=== PATIENT | male | born 1940 | race Caucasian/White ===

== ENCOUNTER 2020-09-01 17:19 | Inpatient (IN) | payer OTHER, MEDICAID ==
[~2020-09-01] VITALS: Ht 185.4 cm; Wt 84.4 kg
[2020-09-01 18:18] LABS: HEMATOCRIT. 29.9 % (42.0-52.0); HEMOGLOBIN. 10.4 g/dL (14.0-18.0); MEAN CORPUSCULAR HEMOGLOBIN 34.6 pg (28.0-32.0); MEAN CORPUSCULAR VOLUME 99.7 fL (80.0-94.0); MEAN PLATELET VOLUME 8.8 fl (7.4-10.4); PLATELET 205 x1000/uL (130-400); RED CELL DISTRIBUTION WIDTH 13.7 % (11.6-14.6)
[2020-09-01 18:25] LABS: CHLORIDE 105 mEq/L (98-107)
[2020-09-01] MEDS ORDERED: ACETAMINOPHEN 325MG TABLET PO STA (18:31)
[2020-09-01 18:35] LABS: NUCLEATED RED BLOOD CELLS 1 /100 WBC
[2020-09-01 18:36] LABS: PLATELET ESTIMATE NORMAL
[2020-09-01] MEDS ORDERED: DILTIAZEM HCL 5MG/ML 5ML VIAL IV ONE (18:45)
[2020-09-01] MEDS ORDERED: OSELTAMIVIR 75MG CAPSULE PO ONE (18:45)
[2020-09-01] MEDS ORDERED: AZITHROMYCIN 500 MG in DEXT 5% WATER 250 ML IV ONE (18:45)
[2020-09-01] MEDS ORDERED: CEFTRIAXONE 1 G PREMIX 50 ML IV ONE (18:45)
[2020-09-01] MEDS ORDERED: SODIUM CHLORIDE 0.9% 1,000 ML IV ONE ×2 (18:45→23:00)
[2020-09-01] MEDS ORDERED: DEXAMETHASONE 10 MG/ML VIAL IV ONE (20:15)
[2020-09-01] MEDS ORDERED: ASPIRIN 81MG TABLET PO ONE (22:30)
[2020-09-01] MEDS ORDERED: ACETAMINOPHEN 325MG TABLET PO PRN ×2 (22:45)
[2020-09-01] MEDS ORDERED: CLONIDINE 0.1MG TABLET PO PRN (22:45)
[2020-09-01] MEDS ORDERED: KETOROLAC 15MG/ML VIAL IV PRN (22:45)
[2020-09-01] MEDS ORDERED: ALBUTEROL 6.7GM HFA INHALER ORI PRN (22:45)
[2020-09-01] MEDS ORDERED: MAGNESIUM/ALUMINUM HYDROXIDE/SIMETHICONE 30ML UDC PO PRN (22:45)
[2020-09-01] MEDS ORDERED: GUAIFENESIN 200MG/10ML SUGAR FREE UDC PO PRN (22:45)
[2020-09-01] MEDS ORDERED: ONDANSETRON HCL 4MG/2ML INJ IV PRN (22:45)
[2020-09-01] MEDS ORDERED: NA PHOS,M-B/NA PHOS,DI-BA ENEMA 118ML PR PRN (22:45)
[2020-09-01] MEDS ORDERED: NITROGLYCERIN 0.4MG TABLET SL SL PRN (22:45)
[2020-09-01 23:54] LABS: FOLIC ACID (FOLATE) SERUM 9.1 ng/mL (>5.38)
[2020-09-02] MEDS ORDERED: AZITHROMYCIN 500 MG in DEXT 5% WATER 250 ML IV SCH (02:00)
[2020-09-02 02:50] LABS: CLARITY URINE CLOUDY (CLEAR); COLOR URINE ORANGE (YELLOW); KETONES URINE NEGATIVE (NEGATIVE); LEUKOCYTE ESTERASE URINE 1+ (NEGATIVE); NITRITE URINE POSITIVE (NEGATIVE); OCCULT BLOOD URINE TRACE (NEGATIVE); PROTEIN URINE 2+ (NEGATIVE)
[2020-09-02 03:10] LABS: *AMPHETAMINES SCREEN URINE NEGATIVE (NEGATIVE)
[2020-09-02 03:11] LABS: *BARBITURATES SCREEN URINE NEGATIVE (NEGATIVE); *BENZODIAZEPINES SCREEN URINE NEGATIVE (NEGATIVE); *COCAINE SCREEN URINE NEGATIVE (NEGATIVE); CANNABINOID URINE SCREEN NEGATIVE (NEGATIVE); METHADONE URINE SCREEN NEGATIVE (NEGATIVE); OPIATES URINE SCREEN NEGATIVE (NEGATIVE); PHENCYCLIDINE URINE SCREEN NEGATIVE (NEGATIVE)
[2020-09-02] MEDS ORDERED: ASPIRIN 325MG EC TABLET PO SCH (04:00)
[2020-09-02] MEDS: DEXAMETHASONE 10 MG/ML VIAL IV SCH (04:28)
[2020-09-02] MEDS: DILTIAZEM HCL 60MG TABLET PO SCH ×3 (04:28→18:26)
[2020-09-02] MEDS: GUAIFENESIN/DM 600MG/30MG ER TAB 12HR PO SCH ×2 (04:28→21:40)
[2020-09-02] MEDS: ASPIRIN 325MG EC TABLET PO SCH (04:28)
[2020-09-02] MEDS ORDERED: ZOLPIDEM TARTRATE 5MG TABLET PO PRN (05:00)
[2020-09-02] MEDS ORDERED: ENOXAPARIN 100MG/ML SYR SUBCUT SCH (08:00)
[2020-09-02 09:55] LABS: HEMATOCRIT. 26.3 % (42.0-52.0); HEMOGLOBIN. 9.1 g/dL (14.0-18.0); MEAN CORPUSCULAR HEMOGLOBIN 34.3 pg (28.0-32.0); MEAN CORPUSCULAR VOLUME 99.2 fL (80.0-94.0); MEAN PLATELET VOLUME 8.7 fl (7.4-10.4); PLATELET 165 x1000/uL (130-400); RED BLOOD CELL COUNT 2.65 mill/uL (4.7-6.1); RED CELL DISTRIBUTION WIDTH 13.9 % (11.6-14.6)
[2020-09-02] MEDS: ZINC SULFATE 220 MG ( 50 ) CAPSULE PO SCH (09:56)
[2020-09-02] MEDS: FAMOTIDINE 20MG TABLET PO SCH ×2 (09:57→21:40)
[2020-09-02] MEDS: ASCORBIC ACID 500 MG TABLET PO SCH ×2 (09:57→21:40)
[2020-09-02 10:02] LABS: CHLORIDE 107 mEq/L (98-107)
[2020-09-02 10:07] LABS: INR 2.8; PROTHROMBIN TIME 28.2 sec (9.6-11.0)
[2020-09-02 10:08] LABS: PHOSPHORUS 3.4 mg/dL (2.5-4.9)
[2020-09-02 10:10] LABS: CREATINE KINASE 194 IU/L (39-308)
[2020-09-02 10:13] LABS: CREATINE KINASE MB FRACTION 3.5 ng/mL (0.5-3.6)
[2020-09-02 13:04] LABS: PLATELET ESTIMATE NORMAL
[2020-09-02] MEDS ORDERED: CEFTRIAXONE 1 G PREMIX 50 ML IV SCH (18:00)
[2020-09-02 19:55] LABS: CREATINE KINASE MB FRACTION 2.5 ng/mL (0.5-3.6)
[2020-09-02 23:00] VITALS: BP 131/80
[2020-09-03 04:00] VITALS: BP 114/67
[2020-09-03 07:42] LABS: PROTHROMBIN TIME 29.6 sec (9.6-11.0)
[2020-09-03 08:00] VITALS: BP 156/57
[2020-09-03] MEDS: ZINC SULFATE 220 MG ( 50 ) CAPSULE PO SCH (10:39)
[2020-09-03] MEDS: ASCORBIC ACID 500 MG TABLET PO SCH ×2 (10:39→20:43)
[2020-09-03] MEDS: FAMOTIDINE 20MG TABLET PO SCH ×2 (10:39→20:43)
[2020-09-03] MEDS: ASPIRIN 325MG EC TABLET PO SCH (10:39)
[2020-09-03] MEDS: DEXAMETHASONE 10 MG/ML VIAL IV SCH (10:39)
[2020-09-03] MEDS: GUAIFENESIN/DM 600MG/30MG ER TAB 12HR PO SCH ×2 (10:42→20:43)
[2020-09-03 12:00] VITALS: BP 123/73
[2020-09-03] MEDS: DILTIAZEM HCL 60MG TABLET PO SCH ×3 (13:09→18:00)
[2020-09-03] MEDS: ALBUTEROL 6.7GM HFA INHALER ORI SCH ×3 (13:09→20:44)
[2020-09-03 16:00] VITALS: BP 108/53
[2020-09-03] MEDS: CEFTRIAXONE 1,000 MG in DEXTROSE 5% WATER 50 ML IV SCH (18:51)
[2020-09-03 20:00] VITALS: BP 112/67
[2020-09-03] MEDS: AZITHROMYCIN 500 MG in DEXT 5% WATER 250 ML IV SCH (20:43)
[2020-09-04 00:05] VITALS: BP 133/70
[2020-09-04] MEDS: DILTIAZEM HCL 60MG TABLET PO SCH ×4 (00:39→17:24)
[2020-09-04 04:00] VITALS: BP 124/64
[2020-09-04] MEDS: ALBUTEROL 6.7GM HFA INHALER ORI SCH ×4 (05:57→21:28)
[2020-09-04 07:21] LABS: INR 3.2; PROTHROMBIN TIME 31.8 sec (9.6-11.0)
[2020-09-04] MEDS: ZINC SULFATE 220 MG ( 50 ) CAPSULE PO SCH (08:50)
[2020-09-04] MEDS: FAMOTIDINE 20MG TABLET PO SCH ×2 (08:50→21:27)
[2020-09-04] MEDS: ASPIRIN 325MG EC TABLET PO SCH (08:50)
[2020-09-04] MEDS: ASCORBIC ACID 500 MG TABLET PO SCH ×2 (08:51→21:27)
[2020-09-04] MEDS: DEXAMETHASONE 10 MG/ML VIAL IV SCH (08:51)
[2020-09-04] MEDS: GUAIFENESIN/DM 600MG/30MG ER TAB 12HR PO SCH ×2 (09:00→22:21)
[2020-09-04 12:00] VITALS: BP 141/81
[2020-09-04 13:24] LABS: BG CARBOXYHEMOGLOBIN 0.3 % (0.5-1.5); BG DEOXYHEMOGLOBIN 10.8 % (0.0-5.0); BG HCO3 ACT 20.7 mmol/L (22.0-26.0); BG METHEMOGLOBIN 0.3 % (0.0-1.5); BG OXYGEN SATURATION 89.1 % (92.0-98.5); BG OXYHEMOGLOBIN 88.6 % (94.0-97.0); BG PCO2 32.3 mmHg (35.0-45.0); BG PH 7.425 (7.350-7.450); BG PO2 58.5 mmHg (75.0-100.0); BG SAMPLE SITE RIGHT RADIAL; BG TOTAL HEMOGLOBIN 10.1 g/dL (12.0-18.0); BG VENT MODE MASK - NRB
[2020-09-04] MEDS ORDERED: DEXTROSE 50% WATER 50ML SYRINGE IV PRN (15:00)
[2020-09-04 16:00] VITALS: BP 133/68
[2020-09-04] MEDS: BLOOD SUGAR DIAGNOSTIC STRIP TEST SCH ×2 (17:04→21:28)
[2020-09-04] MEDS: CEFTRIAXONE 1,000 MG in DEXTROSE 5% WATER 50 ML IV SCH (17:21)
[2020-09-04] MEDS: INSULIN LISPRO 100 UNITS/ML SUBCUT SCH ×2 (17:25→21:27)
[2020-09-04 20:00] VITALS: BP 126/69
[2020-09-04 20:44] LABS: HEMATOCRIT. 28.5 % (42.0-52.0); HEMOGLOBIN. 9.4 g/dL (14.0-18.0); MEAN CORPUSCULAR HEMOGLOBIN 33.3 pg (28.0-32.0); MEAN CORPUSCULAR VOLUME 100.4 fL (80.0-94.0); MEAN PLATELET VOLUME 9.6 fl (7.4-10.4); PLATELET 216 x1000/uL (130-400); RED BLOOD CELL COUNT 2.84 mill/uL (4.7-6.1); RED CELL DISTRIBUTION WIDTH 14.3 % (11.6-14.6)
[2020-09-04 20:55] LABS: CHLORIDE 103 mEq/L (98-107)
[2020-09-04] MEDS: AZITHROMYCIN 500 MG in DEXT 5% WATER 250 ML IV SCH (21:21)
[2020-09-04 23:07] LABS: PLATELET ESTIMATE NORMAL
[2020-09-05 00:40] VITALS: BP 129/75
[2020-09-05] MEDS: ALBUTEROL 6.7GM HFA INHALER ORI SCH ×4 (03:35→21:00)
[2020-09-05] MEDS: DILTIAZEM HCL 60MG TABLET PO SCH ×4 (05:44→17:08)
[2020-09-05] MEDS: BLOOD SUGAR DIAGNOSTIC STRIP TEST SCH ×4 (05:51→21:49)
[2020-09-05 07:48] LABS: INR 3.2; PROTHROMBIN TIME 32.1 sec (9.6-11.0)
[2020-09-05 07:50] LABS: HEMATOCRIT. 26.4 % (42.0-52.0); MEAN CORPUSCULAR VOLUME 99.6 fL (80.0-94.0); MEAN PLATELET VOLUME 9.3 fl (7.4-10.4); PLATELET 160 x1000/uL (130-400); RED BLOOD CELL COUNT 2.66 mill/uL (4.7-6.1); RED CELL DISTRIBUTION WIDTH 14.3 % (11.6-14.6)
[2020-09-05 08:00] VITALS: BP 138/89
[2020-09-05] MEDS: GUAIFENESIN/DM 600MG/30MG ER TAB 12HR PO SCH ×2 (08:26→21:48)
[2020-09-05] MEDS: ZINC SULFATE 220 MG ( 50 ) CAPSULE PO SCH (08:26)
[2020-09-05] MEDS: ASPIRIN 325MG EC TABLET PO SCH (08:26)
[2020-09-05] MEDS: FAMOTIDINE 20MG TABLET PO SCH ×2 (08:26→21:48)
[2020-09-05] MEDS: DEXAMETHASONE 10 MG/ML VIAL IV SCH (08:26)
[2020-09-05] MEDS: ASCORBIC ACID 500 MG TABLET PO SCH ×2 (08:27→21:48)
[2020-09-05 08:28] LABS: CHLORIDE 104 mEq/L (98-107)
[2020-09-05] MEDS: INSULIN LISPRO 100 UNITS/ML SUBCUT SCH ×4 (08:28→21:48)
[2020-09-05] MEDS ORDERED: BENZONATATE 200MG CAPSULE PO PRN (11:00)
[2020-09-05 11:40] LABS: BG BASE EXCESS -2.1 mmol/L (-2.0-2.0); BG CARBOXYHEMOGLOBIN 0.3 % (0.5-1.5); BG DEOXYHEMOGLOBIN 7.5 % (0.0-5.0); BG FRACTION INSPIRED OXYGEN 100; BG HCO3 ACT 21.8 mmol/L (22.0-26.0); BG METHEMOGLOBIN 0.2 % (0.0-1.5); BG OXYGEN SATURATION 92.5 % (92.0-98.5); BG PCO2 33.6 mmHg (35.0-45.0); BG PO2 67.2 mmHg (75.0-100.0); BG SAMPLE SITE RIGHT RADIAL; BG TOTAL HEMOGLOBIN 9.3 g/dL (12.0-18.0); BG VENT MODE MASK - NRB
[2020-09-05 12:00] VITALS: BP 158/69
[2020-09-05 16:00] VITALS: BP 121/70
[2020-09-05] MEDS: CEFTRIAXONE 1,000 MG in DEXTROSE 5% WATER 50 ML IV SCH (17:08)
[2020-09-05 20:00] VITALS: BP 128/67
[2020-09-05] MEDS: AZITHROMYCIN 500 MG in DEXT 5% WATER 250 ML IV SCH (21:47)
[2020-09-06] MEDS: ALBUTEROL 6.7GM HFA INHALER ORI SCH (03:00)
[2020-09-06] MEDS: BLOOD SUGAR DIAGNOSTIC STRIP TEST SCH ×4 (06:40→20:34)
[2020-09-06 06:50] LABS: HEMATOCRIT. 25.1 % (42.0-52.0); HEMOGLOBIN. 8.7 g/dL (14.0-18.0); MEAN CORPUSCULAR HEMOGLOBIN 34.3 pg (28.0-32.0); MEAN CORPUSCULAR VOLUME 99.4 fL (80.0-94.0); MEAN PLATELET VOLUME 9.5 fl (7.4-10.4); PLATELET 151 x1000/uL (130-400); RED BLOOD CELL COUNT 2.52 mill/uL (4.7-6.1)
[2020-09-06 07:01] LABS: INR 2.8; PROTHROMBIN TIME 27.6 sec (9.6-11.0)
[2020-09-06 07:10] LABS: CHLORIDE 104 mEq/L (98-107)
[2020-09-06 08:00] VITALS: BP 115/70
[2020-09-06] MEDS: GUAIFENESIN/DM 600MG/30MG ER TAB 12HR PO SCH ×2 (08:34→20:48)
[2020-09-06] MEDS: DEXAMETHASONE 10 MG/ML VIAL IV SCH (08:34)
[2020-09-06] MEDS: ZINC SULFATE 220 MG ( 50 ) CAPSULE PO SCH (08:34)
[2020-09-06] MEDS: ASPIRIN 325MG EC TABLET PO SCH (08:34)
[2020-09-06] MEDS: DILTIAZEM HCL 60MG TABLET PO SCH ×4 (08:35→19:05)
[2020-09-06] MEDS: ASCORBIC ACID 500 MG TABLET PO SCH ×2 (08:35→20:45)
[2020-09-06] MEDS: INSULIN LISPRO 100 UNITS/ML SUBCUT SCH ×3 (08:36→20:46)
[2020-09-06] MEDS: FAMOTIDINE 20MG TABLET PO SCH ×2 (09:55→20:45)
[2020-09-06 12:00] VITALS: BP 135/68
[2020-09-06 15:16] LABS: PLATELET ESTIMATE NORMAL
[2020-09-06 16:00] VITALS: BP 158/67
[2020-09-06 16:20] LABS: PLATELET ESTIMATE NORMAL
[2020-09-06 18:30] LABS: BG BASE EXCESS -2.8 mmol/L (-2.0-2.0); BG CARBOXYHEMOGLOBIN 0.3 % (0.5-1.5); BG DEOXYHEMOGLOBIN 7.8 % (0.0-5.0); BG FRACTION INSPIRED OXYGEN 99.9; BG HCO3 ACT 20.7 mmol/L (22.0-26.0); BG OXYGEN SATURATION 92.2 % (92.0-98.5); BG OXYHEMOGLOBIN 91.9 % (94.0-97.0); BG PCO2 31.3 mmHg (35.0-45.0); BG PH 7.438 (7.350-7.450); BG SAMPLE SITE RIGHT BRACHIAL; BG TOTAL HEMOGLOBIN 10.6 g/dL (12.0-18.0); BG VENT MODE MASK - NRB
[2020-09-06 20:00] VITALS: BP 125/83
[2020-09-06] MEDS ORDERED: INSULIN LISPRO 100 UNITS/ML SUBCUT ONE (20:00)
[2020-09-06] MEDS ORDERED: INSULIN LISPRO 100 UNITS/ML SUBCUT SCH (20:45)
[2020-09-07] VITALS: BP 137/61
[2020-09-07] MEDS: DILTIAZEM HCL 60MG TABLET PO SCH ×4 (01:02→17:01)
[2020-09-07 04:00] VITALS: BP 130/74
[2020-09-07] MEDS: BLOOD SUGAR DIAGNOSTIC STRIP TEST SCH ×4 (06:09→20:34)
[2020-09-07 07:39] LABS: HEMATOCRIT. 27.8 % (42.0-52.0); HEMOGLOBIN. 9.6 g/dL (14.0-18.0); MEAN CORPUSCULAR HEMOGLOBIN 34.3 pg (28.0-32.0); MEAN CORPUSCULAR VOLUME 99.2 fL (80.0-94.0); MEAN PLATELET VOLUME 9.4 fl (7.4-10.4); PLATELET 186 x1000/uL (130-400); RED CELL DISTRIBUTION WIDTH 14.1 % (11.6-14.6)
[2020-09-07 07:55] LABS: CHLORIDE 105 mEq/L (98-107)
[2020-09-07 08:00] VITALS: BP_SYST 110; BP_SYST 116; BP_SYST 120; BP_DIAS 54; BP_DIAS 64; BP_DIAS 71
[2020-09-07 08:04] LABS: INR 2.3; PROTHROMBIN TIME 22.8 sec (9.6-11.0)
[2020-09-07] MEDS: ALBUTEROL 6.7GM HFA INHALER ORI SCH ×3 (09:00→20:33)
[2020-09-07] MEDS: GUAIFENESIN/DM 600MG/30MG ER TAB 12HR PO SCH ×2 (09:00→20:34)
[2020-09-07] MEDS: ZINC SULFATE 220 MG ( 50 ) CAPSULE PO SCH (09:20)
[2020-09-07] MEDS: ASCORBIC ACID 500 MG TABLET PO SCH ×2 (09:20→20:34)
[2020-09-07] MEDS: ASPIRIN 325MG EC TABLET PO SCH (09:20)
[2020-09-07] MEDS: FAMOTIDINE 20MG TABLET PO SCH ×2 (09:20→20:34)
[2020-09-07] MEDS: DEXAMETHASONE 10 MG/ML VIAL IV SCH (09:21)
[2020-09-07] MEDS: INSULIN LISPRO 100 UNITS/ML SUBCUT SCH ×4 (09:22→20:35)
[2020-09-07 12:00] VITALS: BP 133/70
[2020-09-07 12:35] LABS: BG BASE EXCESS -1.6 mmol/L (-2.0-2.0); BG CARBOXYHEMOGLOBIN 0.2 % (0.5-1.5); BG DEOXYHEMOGLOBIN 6.8 % (0.0-5.0); BG HCO3 ACT 21.1 mmol/L (22.0-26.0); BG METHEMOGLOBIN 0.2 % (0.0-1.5); BG OXYGEN SATURATION 93.2 % (92.0-98.5); BG OXYHEMOGLOBIN 92.8 % (94.0-97.0); BG PCO2 29.1 mmHg (35.0-45.0); BG PH 7.478 (7.350-7.450); BG SAMPLE SITE RIGHT BRACHIAL; BG TOTAL HEMOGLOBIN 10.8 g/dL (12.0-18.0); BG VENT MODE MASK - NRB
[2020-09-07 16:00] VITALS: BP 110/65
[2020-09-07] MEDS ORDERED: WARFARIN SODIUM 2MG TABLET PO SCH (18:00)
[2020-09-07 18:33] LABS: PLATELET ESTIMATE NORMAL
[2020-09-07 20:00] VITALS: BP 139/73
[2020-09-08] VITALS: BP 126/85
[2020-09-08] MEDS: DILTIAZEM HCL 60MG TABLET PO SCH ×4 (00:11→18:34)
[2020-09-08] MEDS: ALBUTEROL 6.7GM HFA INHALER ORI SCH ×4 (02:02→22:10)
[2020-09-08 04:00] VITALS: BP 110/83
[2020-09-08] MEDS: BLOOD SUGAR DIAGNOSTIC STRIP TEST SCH ×4 (05:40→21:00)
[2020-09-08 07:20] LABS: HEMATOCRIT. 28.8 % (42.0-52.0); HEMOGLOBIN. 9.9 g/dL (14.0-18.0); MEAN CORPUSCULAR HEMOGLOBIN 34.1 pg (28.0-32.0); MEAN CORPUSCULAR VOLUME 99.6 fL (80.0-94.0); MEAN PLATELET VOLUME 9.3 fl (7.4-10.4); PLATELET 193 x1000/uL (130-400); RED BLOOD CELL COUNT 2.89 mill/uL (4.7-6.1); RED CELL DISTRIBUTION WIDTH 14.1 % (11.6-14.6)
[2020-09-08 07:36] LABS: PROTHROMBIN TIME 20.3 sec (9.6-11.0)
[2020-09-08 07:41] LABS: CHLORIDE 103 mEq/L (98-107)
[2020-09-08 08:41] VITALS: BP 97/70
[2020-09-08] MEDS: DEXAMETHASONE 10 MG/ML VIAL IV SCH (10:59)
[2020-09-08] MEDS: FAMOTIDINE 20MG TABLET PO SCH ×2 (11:00→22:06)
[2020-09-08] MEDS: INSULIN LISPRO 100 UNITS/ML SUBCUT SCH ×4 (11:00→22:07)
[2020-09-08] MEDS: ASPIRIN 325MG EC TABLET PO SCH (11:00)
[2020-09-08] MEDS: ZINC SULFATE 220 MG ( 50 ) CAPSULE PO SCH (11:00)
[2020-09-08] MEDS: GUAIFENESIN/DM 600MG/30MG ER TAB 12HR PO SCH ×2 (11:00→22:05)
[2020-09-08 12:11] VITALS: BP 126/85
[2020-09-08] MEDS: ASCORBIC ACID 500 MG TABLET PO SCH ×2 (12:26→22:08)
[2020-09-08 16:29] LABS: PLATELET ESTIMATE NORMAL
[2020-09-08 16:52] VITALS: BP 131/78
[2020-09-08 17:53] LABS: BG BASE EXCESS -0.5 mmol/L (-2.0-2.0); BG CARBOXYHEMOGLOBIN 0.2 % (0.5-1.5); BG FRACTION INSPIRED OXYGEN 100; BG HCO3 ACT 21.5 mmol/L (22.0-26.0); BG METHEMOGLOBIN 0.7 % (0.0-1.5); BG OXYHEMOGLOBIN 97.1 % (94.0-97.0); BG PCO2 26.7 mmHg (35.0-45.0); BG PH 7.523 (7.350-7.450); BG PO2 131.6 mmHg (75.0-100.0); BG SAMPLE SITE RIGHT RADIAL; BG TOTAL HEMOGLOBIN 10.4 g/dL (12.0-18.0); BG VENT MODE MASK - NRB
[2020-09-08] MEDS ORDERED: WARFARIN SODIUM 3MG TABLET PO SCH (18:00)
[2020-09-08 20:00] VITALS: BP 110/54
[2020-09-09] VITALS: BP 127/60
[2020-09-09 04:00] VITALS: BP 131/78
[2020-09-09] MEDS: ALBUTEROL 6.7GM HFA INHALER ORI SCH ×3 (04:37→22:22)
[2020-09-09] MEDS: DILTIAZEM HCL 60MG TABLET PO SCH ×4 (06:02→18:00)
[2020-09-09] MEDS: BLOOD SUGAR DIAGNOSTIC STRIP TEST SCH ×4 (06:25→21:00)
[2020-09-09 08:00] VITALS: BP 124/70
[2020-09-09] MEDS: GUAIFENESIN/DM 600MG/30MG ER TAB 12HR PO SCH ×2 (09:16→22:20)
[2020-09-09] MEDS: ZINC SULFATE 220 MG ( 50 ) CAPSULE PO SCH (09:16)
[2020-09-09] MEDS: FAMOTIDINE 20MG TABLET PO SCH ×2 (09:16→22:20)
[2020-09-09] MEDS: DEXAMETHASONE 10 MG/ML VIAL IV SCH (09:16)
[2020-09-09] MEDS: ASCORBIC ACID 500 MG TABLET PO SCH ×2 (09:16→22:20)
[2020-09-09] MEDS: ASPIRIN 325MG EC TABLET PO SCH (09:16)
[2020-09-09] MEDS: INSULIN LISPRO 100 UNITS/ML SUBCUT SCH ×4 (09:20→22:21)
[2020-09-09 11:32] LABS: HEMATOCRIT. 28.1 % (42.0-52.0); HEMOGLOBIN. 9.5 g/dL (14.0-18.0); MEAN CORPUSCULAR HEMOGLOBIN 33.6 pg (28.0-32.0); PLATELET 203 x1000/uL (130-400); RED BLOOD CELL COUNT 2.84 mill/uL (4.7-6.1); RED CELL DISTRIBUTION WIDTH 14.4 % (11.6-14.6)
[2020-09-09 11:46] LABS: PROTHROMBIN TIME 20.5 sec (9.6-11.0)
[2020-09-09 12:00] VITALS: BP 111/62
[2020-09-09 12:16] LABS: CHLORIDE 103 mEq/L (98-107)
[2020-09-09 16:00] VITALS: BP 101/71
[2020-09-09] MEDS ORDERED: WARFARIN SODIUM 3MG TABLET PO SCH (18:00)
[2020-09-09 20:39] VITALS: BP 126/66
[2020-09-09 20:45] LABS: PLATELET ESTIMATE NORMAL
[2020-09-10 00:08] VITALS: BP 123/78
[2020-09-10] MEDS: DILTIAZEM HCL 60MG TABLET PO SCH ×4 (01:02→17:03)
[2020-09-10] MEDS: ALBUTEROL 6.7GM HFA INHALER ORI SCH ×4 (03:49→21:24)
[2020-09-10 04:00] VITALS: BP 115/67
[2020-09-10] MEDS: BLOOD SUGAR DIAGNOSTIC STRIP TEST SCH ×4 (06:34→21:22)
[2020-09-10] MEDS: INSULIN LISPRO 100 UNITS/ML SUBCUT SCH ×4 (07:10→21:23)
[2020-09-10 08:00] VITALS: BP 119/73
[2020-09-10 08:04] LABS: INR 1.9; PROTHROMBIN TIME 18.9 sec (9.6-11.0)
[2020-09-10] MEDS: GUAIFENESIN/DM 600MG/30MG ER TAB 12HR PO SCH ×2 (08:06→21:22)
[2020-09-10] MEDS: DEXAMETHASONE 10 MG/ML VIAL IV SCH (08:06)
[2020-09-10] MEDS: ZINC SULFATE 220 MG ( 50 ) CAPSULE PO SCH (08:06)
[2020-09-10] MEDS: ASPIRIN 325MG EC TABLET PO SCH (08:06)
[2020-09-10] MEDS: ASCORBIC ACID 500 MG TABLET PO SCH ×2 (08:06→21:22)
[2020-09-10] MEDS: FAMOTIDINE 20MG TABLET PO SCH ×2 (08:06→21:22)
[2020-09-10 12:00] VITALS: BP 126/71
[2020-09-10 16:00] VITALS: BP 111/67
[2020-09-10 17:03] LABS: BG BASE EXCESS -2.3 mmol/L (-2.0-2.0); BG CARBOXYHEMOGLOBIN 0.3 % (0.5-1.5); BG DEOXYHEMOGLOBIN 4.5 % (0.0-5.0); BG FRACTION INSPIRED OXYGEN 40; BG METHEMOGLOBIN 0.3 % (0.0-1.5); BG OXYGEN SATURATION 95.5 % (92.0-98.5); BG OXYHEMOGLOBIN 94.9 % (94.0-97.0); BG PCO2 26.5 mmHg (35.0-45.0); BG PH 7.496 (7.350-7.450); BG PO2 76.3 mmHg (75.0-100.0); BG SAMPLE SITE RIGHT RADIAL; BG TOTAL HEMOGLOBIN 9.8 g/dL (12.0-18.0); BG VENT MODE MASK - SIMPLE
[2020-09-10] MEDS ORDERED: WARFARIN SODIUM 3MG TABLET PO SCH (18:00)
[2020-09-10 20:00] VITALS: BP 120/66
[2020-09-11 00:13] VITALS: BP 134/74
[2020-09-11] MEDS: DILTIAZEM HCL 60MG TABLET PO SCH ×4 (00:54→17:54)
[2020-09-11] MEDS: ALBUTEROL 6.7GM HFA INHALER ORI SCH ×2 (03:00→20:01)
[2020-09-11 04:00] VITALS: BP 133/66
[2020-09-11] MEDS: BLOOD SUGAR DIAGNOSTIC STRIP TEST SCH ×4 (05:58→20:01)
[2020-09-11 07:43] LABS: INR 1.6
[2020-09-11 08:00] VITALS: BP 120/85
[2020-09-11] MEDS: ASCORBIC ACID 500 MG TABLET PO SCH ×2 (08:33→20:01)
[2020-09-11] MEDS: GUAIFENESIN/DM 600MG/30MG ER TAB 12HR PO SCH ×2 (08:33→20:01)
[2020-09-11] MEDS: DEXAMETHASONE 10 MG/ML VIAL IV SCH (08:33)
[2020-09-11] MEDS: FAMOTIDINE 20MG TABLET PO SCH ×2 (08:33→20:01)
[2020-09-11] MEDS: ASPIRIN 325MG EC TABLET PO SCH (08:33)
[2020-09-11] MEDS: ZINC SULFATE 220 MG ( 50 ) CAPSULE PO SCH (08:33)
[2020-09-11] MEDS: INSULIN LISPRO 100 UNITS/ML SUBCUT SCH ×4 (08:43→20:04)
[2020-09-11 16:00] VITALS: BP 107/52
[2020-09-11] MEDS ORDERED: WARFARIN SODIUM 5MG TABLET PO NR (18:00)
[2020-09-11 18:55] LABS: BG BASE EXCESS 0.5 mmol/L (-2.0-2.0); BG CARBOXYHEMOGLOBIN 0.3 % (0.5-1.5); BG DEOXYHEMOGLOBIN 8.8 % (0.0-5.0); BG FRACTION INSPIRED OXYGEN 28; BG HCO3 ACT 23.3 mmol/L (22.0-26.0); BG METHEMOGLOBIN 0.2 % (0.0-1.5); BG OXYGEN SATURATION 91.2 % (92.0-98.5); BG OXYHEMOGLOBIN 90.7 % (94.0-97.0); BG PCO2 30.5 mmHg (35.0-45.0); BG PO2 61.4 mmHg (75.0-100.0); BG TOTAL HEMOGLOBIN 9.8 g/dL (12.0-18.0); BG VENT MODE NASAL CANNULA
[2020-09-11 20:00] VITALS: BP 111/59
[2020-09-12] VITALS: BP 111/69
[2020-09-12] MEDS: ALBUTEROL 6.7GM HFA INHALER ORI SCH ×4 (02:01→21:37)
[2020-09-12 04:00] VITALS: BP 143/62
[2020-09-12] MEDS: DILTIAZEM HCL 60MG TABLET PO SCH ×5 (05:19→23:15)
[2020-09-12] MEDS: BLOOD SUGAR DIAGNOSTIC STRIP TEST SCH ×4 (05:55→21:38)
[2020-09-12 06:21] LABS: CHLORIDE 100 mEq/L (98-107)
[2020-09-12 06:48] LABS: BASOPHILS % 0.5 % (0.0-2.0); EOSINOPHILS % 0.1 % (0.0-5.0); HEMATOCRIT. 30.6 % (42.0-52.0); HEMOGLOBIN. 10.3 g/dL (14.0-18.0); LYMPHOCYTES % 11.7 % (20.0-50.0); MEAN CORPUSCULAR HEMOGLOBIN 33.6 pg (28.0-32.0); MEAN CORPUSCULAR VOLUME 99.7 fL (80.0-94.0); MEAN PLATELET VOLUME 9.3 fl (7.4-10.4); NEUTROPHILS % 85.7 % (40.0-76.0); PLATELET 189 x1000/uL (130-400); RED BLOOD CELL COUNT 3.06 mill/uL (4.7-6.1); RED CELL DISTRIBUTION WIDTH 14.5 % (11.6-14.6)
[2020-09-12 07:53] LABS: INR 1.5; PROTHROMBIN TIME 15.6 sec (9.6-11.0)
[2020-09-12 08:00] VITALS: BP 115/72
[2020-09-12] MEDS: DEXAMETHASONE 10 MG/ML VIAL IV SCH (08:10)
[2020-09-12] MEDS: ASCORBIC ACID 500 MG TABLET PO SCH ×2 (08:11→21:38)
[2020-09-12] MEDS: ASPIRIN 325MG EC TABLET PO SCH (08:11)
[2020-09-12] MEDS: FAMOTIDINE 20MG TABLET PO SCH ×2 (08:11→21:38)
[2020-09-12] MEDS: GUAIFENESIN/DM 600MG/30MG ER TAB 12HR PO SCH ×2 (08:11→21:37)
[2020-09-12] MEDS: ZINC SULFATE 220 MG ( 50 ) CAPSULE PO SCH (08:11)
[2020-09-12] MEDS: INSULIN LISPRO 100 UNITS/ML SUBCUT SCH ×4 (08:12→21:37)
[2020-09-12] MEDS: DOCUSATE SODIUM 100MG CAPSULE PO PRN ×2 (10:21→21:38)
[2020-09-12 12:00] VITALS: BP 111/56
[2020-09-12 16:00] VITALS: BP 121/65
[2020-09-12] MEDS ORDERED: WARFARIN SODIUM 5MG TABLET PO NR (18:00)
[2020-09-12 20:00] VITALS: BP 116/59
[2020-09-13] VITALS: BP 122/69
[2020-09-13] MEDS: ALBUTEROL 6.7GM HFA INHALER ORI SCH ×3 (02:13→15:00)
[2020-09-13 04:00] VITALS: BP 122/63
[2020-09-13] MEDS: DILTIAZEM HCL 60MG TABLET PO SCH ×3 (05:02→17:45)
[2020-09-13] MEDS: BLOOD SUGAR DIAGNOSTIC STRIP TEST SCH ×3 (05:51→16:20)
[2020-09-13] MEDS: INSULIN LISPRO 100 UNITS/ML SUBCUT SCH ×3 (07:10→17:10)
[2020-09-13 08:00] VITALS: BP 121/64
[2020-09-13 08:06] LABS: BASOPHILS % 0.2 % (0.0-2.0); EOSINOPHILS % 0.4 % (0.0-5.0); HEMATOCRIT. 29.7 % (42.0-52.0); HEMOGLOBIN. 9.9 g/dL (14.0-18.0); LYMPHOCYTES % 14.9 % (20.0-50.0); MEAN CORPUSCULAR HEMOGLOBIN 33.1 pg (28.0-32.0); MEAN CORPUSCULAR VOLUME 99.2 fL (80.0-94.0); MEAN PLATELET VOLUME 8.5 fl (7.4-10.4); MONOCYTES % 4.2 % (2.0-8.0); NEUTROPHILS % 80.3 % (40.0-76.0); PLATELET 204 x1000/uL (130-400); RED BLOOD CELL COUNT 2.99 mill/uL (4.7-6.1)
[2020-09-13 08:08] LABS: INR 1.6; PROTHROMBIN TIME 16.7 sec (9.6-11.0)
[2020-09-13 08:12] LABS: CHLORIDE 101 mEq/L (98-107)
[2020-09-13] MEDS: ZINC SULFATE 220 MG ( 50 ) CAPSULE PO SCH (08:46)
[2020-09-13] MEDS: ASCORBIC ACID 500 MG TABLET PO SCH (08:46)
[2020-09-13] MEDS: GUAIFENESIN/DM 600MG/30MG ER TAB 12HR PO SCH (08:46)
[2020-09-13] MEDS: FAMOTIDINE 20MG TABLET PO SCH (08:46)
[2020-09-13] MEDS: ASPIRIN 325MG EC TABLET PO SCH (08:47)
[2020-09-13] MEDS ORDERED: DEXAMETHASONE 10 MG/ML VIAL IV SCH (09:00)
[2020-09-13 12:00] VITALS: BP 104/59
[2020-09-13] MEDS ORDERED: ALBU90AE INH (12:44)
[2020-09-13] MEDS ORDERED: CHOL3000 MT (12:44)
[2020-09-13] MEDS ORDERED: APIX5TAB MT (12:44)
[2020-09-13] MEDS ORDERED: DEXA4TAB MT ×2 (12:44→12:57)
[2020-09-13] MEDS ORDERED: FAMO-135 PO (12:44)
[2020-09-13] MEDS ORDERED: ASCO500C18 MT (12:44)
[2020-09-13] MEDS ORDERED: DILT30TA38 MT (12:52)
[2020-09-13] MEDS ORDERED: FLAS1EAC2 TP (12:57)
[2020-09-13] MEDS ORDERED: LANC1COM2 MC (12:57)
[2020-09-13] MEDS ORDERED: BLOO1KIT74 TP (12:57)
[2020-09-13] MEDS ORDERED: METF-414 PO (13:38)
[2020-09-13] MEDS ORDERED: LACTULOSE 20G/30ML UDC PO NR (15:15)
[2020-09-13 15:50] VITALS: BP 110/69
[2020-09-13 16:02] VITALS: BP 110/69
[2020-09-13] MEDS ORDERED: NA PHOS,M-B/NA PHOS,DI-BA ENEMA 118ML PR NR (16:19)
[2020-09-13] MEDS ORDERED: WARFARIN SODIUM 5MG TABLET PO NR (18:00)
== END 2020-09-13 17:45 | disposition home or self-care (01) | DRG 871 ==
LOC: ER 17:19 → MICUSO 22:31 → EDBEDREQ 22:48 → EDBEDREQTM 22:48 → 7EST 09-02 21:50
PROVIDERS: ADMIT Internal Medicine; ATTEND Internal Medicine
DX: A41.89 Other specified sepsis (principal); U07.1 COVID-19; J96.01 Acute respiratory failure with hypoxia; E43 Unspecified severe protein-calorie malnutrition; J12.82 Pneumonia due to coronavirus disease 2019; E87.2 Acidosis; D68.69 Other thrombophilia; D68.8 Other specified coagulation defects; D63.8 Anemia in other chronic diseases classified elsewhere; I25.10 Atherosclerotic heart disease of native coronary artery without angina pectoris; R73.03 Prediabetes; I48.91 Unspecified atrial fibrillation; I10 Essential (primary) hypertension; R73.9 Hyperglycemia, unspecified; Z79.01 Long term (current) use of anticoagulants; Z85.46 Personal history of malignant neoplasm of prostate; Z79.84 Long term (current) use of oral hypoglycemic drugs; Z79.899 Other long term (current) drug therapy; Z86.19 Personal history of other infectious and parasitic diseases; Z68.24 Body mass index [BMI] 24.0-24.9, adult
CPT/HCPCS: 36415; 36600; 71045; 80048; 80053; 80061; 80305; 81003; 82375; 82550; 82553; 82607; 82746; 82805; 82962; 83036; 83540; 83550; 83605; 83735; 83880; 84100; 84153; 84443; 84484; 85025; 85379; 87804; 93005; 93970; 99291; C1893; J0456; J0696; J1100; J1650; J1815; J3490; J7030; J7040; J7060; U0003; G0103